=== PATIENT | male | born 1945 | race Caucasian/White ===

== ENCOUNTER → 2022-01-26 00:50 | Outpatient (CLI) | payer MEDICARE, BC, SELFPAY ==
--- NOTE | 2022-01-26 | DI.NM_ITS ---
Exam(s) NM BONE SCAN WHOLE BODY GRP EXAM: NM BONE SCAN WHOLE BODY GRP CLINICAL HISTORY: PROSTATE CANCER C61. TECHNIQUE: Injected Dose: 25 mCi Tc-99m MDP Delayed Images: 2-3 hours. COMPARISON: No exams were available for comparison FINDINGS: There are photopenic zones in both knees consistent with presence of bilateral knee prostheses.. Increased focal uptake seen in the right foot is at the level of the great toe metatarsophalangeal concepcion int. A lesser amount of similar uptake is seen at same location in the opposite-left foot. No abnormal uptake in the hips and pelvis and spinal column nor in the rib cages. There is some increased uptake seen in the right shoulder region. Possibly degenerative but cannot e xclude bone lesion. There is a single focus of increased uptake seen in the mid frontal bone skull. This would be unlike ly to be a metastatic lesion from prostate malignancy. IMPRESSION: 1. No evidence of obvious osseous metastatic disease. However, given the radiopharmaceutical uptake in the right shoulder region I recommend plain film series of the right shoulder as the next step. 2. Other findings as above. DATA REPOSITORY:
== END ==
PROVIDERS: PCP Family Medicine; Visit Provider Urology
DX: C61 Malignant neoplasm of prostate (principal)
CPT/HCPCS: 78306